=== PATIENT | female | born 1940 | race Caucasian/White ===

== ENCOUNTER 2017-01-28 10:01 | Emergency (ER) | payer OTHER ==
[2017-01-28 12:16] LABS: BILIRUBIN NEGATIVE (NEGATIVE); BLOOD NEGATIVE Ery/uL (NEGATIVE); CLARITY CLEAR (CLEAR); COLOR YELLOW (YELLOW); GLUCOSE (U) NORMAL (NORMAL); KETONE (U) NEGATIVE (NEGATIVE); LEUKOCYTES 1+ Leu/uL (NEGATIVE); NITRITE NEGATIVE (NEGATIVE); PROTEIN TRACE (LOW) mg/dL (NEGATIVE); UROBILINOGEN 0.2 mg/dL (0.2-1.0); pH 6.5 (5.0-9.0)
[2017-01-28 12:22] LABS: BACTERIA TRACE; MUCOUS TRACE; SQUAMOUS EPITHELIAL CELLS RARE
[2017-01-28 12:43] LABS: BASOPHIL 1.3 % (0-2); EOSINOPHIL 3.1 % (0-7); HCT 36.9 % (37.0-47.0); HGB 12.7 g/dl (12.5-16.0); LYMPHOCYTE 36.6 % (15-48); MCH 31.6 pg (25.0-31.0); MCHC 34.4 g/dL (32.0-36.0); MCV 91.8 fL (78.0-100.0); MONOCYTE 7.7 % (0-12); MPV 10.3 fL (6.0-9.5); NEUTROPHIL 51.3 % (41-80); PLT 170 K/uL (150-400); RBC 4.02 M/uL (4.20-5.40); RDW 12.7 % (11.5-14.0); WBC 5.2 K/uL (4.0-10.5)
[2017-01-28 13:00] LABS: ALBUMIN 4.3 g/dL (3.4-4.8); BILIRUBIN - TOTAL 0.3 mg/dL (0.1-1.0); CREATININE 1.1 mg/dL (0.5-1.0); GLOBULIN (CALCULATION) 2.9 g/dL (2.2-4.2); POTASSIUM 3.9 mmol/L (3.5-5.1); TOTAL PROTEIN 7.2 g/dL (6.4-8.3)
== END 2017-01-28 16:26 | disposition home or self-care (01) ==
LOC: FER 10:01
PROVIDERS: Internal Medicine
DX: K44.9 Diaphragmatic hernia without obstruction or gangrene (principal); K57.30 Diverticulosis of large intestine without perforation or abscess without bleeding; K21.9 Gastro-esophageal reflux disease without esophagitis; I10 Essential (primary) hypertension; E03.9 Hypothyroidism, unspecified; D64.9 Anemia, unspecified; Z90.49 Acquired absence of other specified parts of digestive tract
CPT/HCPCS: 36415; 80053; 81001; 83690; 84484; 85025; 93005; J1885; Q9967

== ENCOUNTER 2021-05-23 15:49 | Emergency (ER) | payer OTHER ==
[~2021-05-23 15:49] MED LIST: ASPIRIN EC81 MG PO; CALCIUM600 MG PO; FERREX 150150 MG PO; LOSARTAN-HCTZ1 EACH PO; LOVAZA1 GM PO; MACROBID100 MG PO; NORVASC5 MG PO; PERCOCET 5-3251 EACH PO; PRILOSEC20 MG PO; STOOL SOFTENER100 MG PO; SYNTHROID88 MCG PO; XARELTO10 MG PO; ZOLOFT100 MG PO
[2021-05-23 16:30] LABS: BILIRUBIN 1+ mg/dL (NEGATIVE); BLOOD 2+ Ery/uL (NEGATIVE); CLARITY CLEAR (CLEAR); COLOR YELLOW (YELLOW); GLUCOSE (U) NORMAL (NORMAL); LEUKOCYTES NEGATIVE Leu/uL (NEGATIVE); NITRITE NEGATIVE (NEGATIVE); PROTEIN 2+ mg/dL (NEGATIVE); SPECIFIC GRAVITY >=1.030 (1.001-1.030)
[2021-05-23 16:39] LABS: AMORPHOUS URATES CRYSTALS MODERATE; BACTERIA 1+; MUCOUS TRACE
[2021-05-23 17:27] LABS: BASOPHIL 0.6 % (0-2); EOSINOPHIL 0.3 % (0-7); HCT 43.1 % (37.0-47.0); LYMPHOCYTE 16.1 % (15-48); MCH 30.6 pg (25.0-31.0); MCHC 32.5 g/dL (32.0-36.0); MCV 94.1 fL (78.0-100.0); MONOCYTE 5.6 % (0-12); MPV 10.9 fL (6.0-9.5); NEUTROPHIL 77.1 % (41-80); NRBC 0; PLT 213 K/uL (150-400); RBC 4.58 M/uL (4.20-5.40); RDW 12.9 % (11.5-14.0); WBC 11.8 K/uL (4.0-10.5)
[2021-05-23 17:48] LABS: ALBUMIN 3.8 g/dL (3.4-5.0); BILIRUBIN - TOTAL 0.6 mg/dL (0.2-1.0); CREATININE 1.41 mg/dL (0.51-0.95); POTASSIUM 3.6 mmol/L (3.5-5.1); TOTAL PROTEIN 8.8 g/dL (6.4-8.2)
[2021-05-23 18:54] LABS: PRO-BNP 822 pg/mL (<450)
[2021-05-23 18:55] LABS: MAGNESIUM 2.3 mg/dL (1.8-2.4)
[2021-05-23 18:56] LABS: LACTIC ACID 1.2 mmol/L (0.4-1.9)
[2021-05-23] MEDS ORDERED: METRONIDAZOLE500 MG PO (22:12)
[2021-05-23] MEDS ORDERED: AUGMENTIN 875-1 EACH PO (22:12)
== END 2021-05-23 22:46 | disposition home or self-care (01) ==
LOC: FER 15:49
PROVIDERS: Emergency Medicine
DX: K57.32 Diverticulitis of large intestine without perforation or abscess without bleeding (principal); I48.91 Unspecified atrial fibrillation; E86.0 Dehydration; I10 Essential (primary) hypertension; Z88.5 Allergy status to narcotic agent; Z20.822 Contact with and (suspected) exposure to COVID-19
CPT/HCPCS: 36415; 70450; 71045; 80053; 81001; 82150; 83605; 83690; 83735; 83880; 84145; 84443; 84484; 85025; 87088; 93005; J0696; J1170; J2405; J7030; U0002

== ENCOUNTER 2021-12-13 21:00 | Inpatient (IN) | payer OTHER ==
[~2021-12-13] VITALS: Ht 160 cm; Wt 69.2 kg
[~2021-12-13 21:00] MED LIST changes: +AUGMENTIN 875-1 EACH PO; +METRONIDAZOLE500 MG PO
[2021-12-13 21:50] LABS: BASOPHIL 0.8 % (0-2); EOSINOPHIL 4.1 % (0-7); HCT 38.8 % (37.0-47.0); HGB 12.5 g/dl (12.5-16.0); LYMPHOCYTE 13.5 % (15-48); MCH 30.6 pg (25.0-31.0); MCHC 32.2 g/dL (32.0-36.0); MCV 95.1 fL (78.0-100.0); MONOCYTE 6.9 % (0-12); MPV 10.5 fL (6.0-9.5); NEUTROPHIL 74.4 % (41-80); NRBC 0; PLT 279 K/uL (150-400); RBC 4.08 M/uL (4.20-5.40); WBC 10.6 K/uL (4.0-10.5)
[2021-12-13 22:04] LABS: INR 1.29 (0.9-1.2); PROTHROMBIN TIME 15.4 SECONDS (11.8-13.4); PTT 37.1 SECONDS (24.4-34.7)
[2021-12-13 22:10] LABS: CORONAVIRUS 2019 SARS-COV-2 POSITIVE (NEGATIVE)
[2021-12-13 22:11] LABS: INFLUENZA A NAA NEGATIVE (NEGATIVE)
[2021-12-13 22:29] LABS: ALBUMIN 2.9 g/dL (3.4-5.0); BILIRUBIN - TOTAL 0.4 mg/dL (0.2-1.0); BUN/CREAT RATIO (CALC) 9.9 RATIO; CREATININE 2.23 mg/dL (0.51-0.95); GLOBULIN (CALCULATION) 4.9 g/dL; POTASSIUM 3.3 mmol/L (3.5-5.1); TOTAL PROTEIN 7.8 g/dL (6.4-8.2)
[2021-12-13 22:31] LABS: LACTIC ACID 1.8 mmol/L (0.4-1.9)
[2021-12-14 13:45] LABS: BILIRUBIN NEGATIVE (NEGATIVE); BLOOD TRACE-INTACT Ery/uL (NEGATIVE); CLARITY CLEAR (CLEAR); COLOR YELLOW (YELLOW); GLUCOSE (U) NORMAL (NORMAL); LEUKOCYTES NEGATIVE Leu/uL (NEGATIVE); NITRITE NEGATIVE (NEGATIVE); PROTEIN 3+ mg/dL (NEGATIVE); SPECIFIC GRAVITY >=1.030 (1.001-1.030); UROBILINOGEN 0.2 mg/dL (0.2-1.0)
[2021-12-14 14:01] LABS: BACTERIA TRACE; URINARY RBC RARE
[2021-12-14] MEDS ORDERED: PRILOSEC20 MG PO (17:04)
[2021-12-14] MEDS ORDERED: ELIQUIS5 MG PO (17:05)
[2021-12-14] MEDS ORDERED: VALSARTAN320 MG PO (17:07)
[2021-12-14] MEDS ORDERED: AMIODARONE HCL200 M1 PO (17:09)
[2021-12-14] MEDS ORDERED: POTASSIUM99 M1 PO (17:10)
[2021-12-14] MEDS ORDERED: TORSEMIDE10 MG PO (17:11)
[2021-12-15 04:35] LABS: BASOPHIL 0.1 % (0-2); EOSINOPHIL 0 % (0-7); HCT 33.2 % (37.0-47.0); HGB 10.8 g/dl (12.5-16.0); LYMPHOCYTE 9.8 % (15-48); MCH 30.5 pg (25.0-31.0); MCHC 32.5 g/dL (32.0-36.0); MCV 93.8 fL (78.0-100.0); MONOCYTE 1.2 % (0-12); MPV 10.7 fL (6.0-9.5); NEUTROPHIL 88.5 % (41-80); NRBC 0; PLT 250 K/uL (150-400); RBC 3.54 M/uL (4.20-5.40); RDW 13.9 % (11.5-14.0)
[2021-12-15 05:07] LABS: ALBUMIN 2.6 g/dL (3.4-5.0); BILIRUBIN - TOTAL 0.3 mg/dL (0.2-1.0); BUN/CREAT RATIO (CALC) 19.7 RATIO; CREATININE 1.27 mg/dL (0.51-0.95); GLOBULIN (CALCULATION) 3.4 g/dL; MAGNESIUM 1.8 mg/dL (1.8-2.4); POTASSIUM 4.1 mmol/L (3.5-5.1)
[2021-12-16 06:29] LABS: BASOPHIL 0.2 % (0-2); EOSINOPHIL 0 % (0-7); HCT 35.3 % (37.0-47.0); HGB 11.4 g/dl (12.5-16.0); LYMPHOCYTE 17.3 % (15-48); MCH 30.8 pg (25.0-31.0); MCHC 32.3 g/dL (32.0-36.0); MCV 95.4 fL (78.0-100.0); MONOCYTE 5.2 % (0-12); MPV 10.7 fL (6.0-9.5); NEUTROPHIL 76.4 % (41-80); NRBC 0; PLT 269 K/uL (150-400); RDW 14.3 % (11.5-14.0)
[2021-12-16 07:20] LABS: BUN/CREAT RATIO (CALC) 18.9 RATIO; CREATININE 1.32 mg/dL (0.51-0.95); POTASSIUM 3.3 mmol/L (3.5-5.1)
[2021-12-16] MEDS ORDERED: VENTOLIN HFA IN18 GM INH (10:46)
[2021-12-16] MEDS ORDERED: DECADRON6 MG PO (10:46)
== END 2021-12-16 12:30 | disposition home or self-care (01) | DRG 177 ==
LOC: FER 21:00 → FMS 12-14 09:30
PROVIDERS: Nurse Practitioner Family; ADMIT Internal Medicine
PROC: XW033E5 Introduction of Remdesivir Anti-infective into Peripheral Vein, Percutaneous Approach, New Technology Group 5 (ICD-10-PCS; principal; 2021-12-13)
PROC: 8E0ZXY6 Isolation (ICD-10-PCS; 2021-12-14)
DX: U07.1 COVID-19 (principal); J12.82 Pneumonia due to coronavirus disease 2019; J96.01 Acute respiratory failure with hypoxia; N17.9 Acute kidney failure, unspecified; N18.32 Chronic kidney disease, stage 3b; I12.9 Hypertensive chronic kidney disease with stage 1 through stage 4 chronic kidney disease, or unspecified chronic kidney disease; E86.0 Dehydration; J43.9 Emphysema, unspecified; I48.0 Paroxysmal atrial fibrillation; E78.5 Hyperlipidemia, unspecified; E03.9 Hypothyroidism, unspecified; K21.9 Gastro-esophageal reflux disease without esophagitis; M81.0 Age-related osteoporosis without current pathological fracture; F41.9 Anxiety disorder, unspecified; M19.90 Unspecified osteoarthritis, unspecified site; Z96.653 Presence of artificial knee joint, bilateral; Z90.49 Acquired absence of other specified parts of digestive tract; Z98.890 Other specified postprocedural states; Z88.5 Allergy status to narcotic agent; Z87.891 Personal history of nicotine dependence; Z79.01 Long term (current) use of anticoagulants; Z79.899 Other long term (current) drug therapy
CPT/HCPCS: 36415; 36600; 71045; 80048; 80053; 81001; 82728; 82803; 83605; 83735; 83880; 84145; 84484; 85025; 85610; 85730; 87040; 93005; 94640; 96372; C9113; C9399; J1100; J1650; J7030; J7050; J8540; U0002